=== PATIENT | male | born 1955 | race African-American/Black ===

== ENCOUNTER 2016-09-19 04:15 | Emergency (ER) | payer BC ==
[~2016-09-19] VITALS: Ht 177.8 cm; Wt 133.8 kg
[2016-09-19] VITALS (8 sets, daily range): BP systolic 61–139; BP diastolic 35–68
--- NOTE | 2016-09-19 04:37 | Emergency Room Report ---
History of Present Illness General Chief Complaint: Allergic Reaction Source: Patient Present Illness HPI This is a 60-year-old male with history of diabetes. He also said he has allergic reaction to Kale. Patient presents with chief complaint of allergic reaction. He said he ate pizza and salad around 8:00 p.m. Around 10:00 patient presents with itching and redness. He took couple Benadryl is. Symptoms did not improve. He took a total of 6 Benadryl is before he called 911 around an hour ago. Patient has nausea vomiting. Also diaphoretic. He said this is typical for him. [place] his tongue swollen. Denies any other complaint. No abdominal pain. No chest pain Allergies: Uncoded Allergies: KALE (Allergy, Unknown, 09/19/16) Patient History Past Medical History: see triage record, old chart reviewed, DM, HTN Past Surgical History: other Pertinent Family History: none Social History: Denies: smoking Immunizations: other Reviewed Nursing Documentation: PMH: Agreed, PSxH: Agreed Nursing Documentation-PMH Past Medical History: No History, Except For Hx Diabetes: Yes Review of Systems Eye: Denies: blurred vision, eye pain ENT: Denies: ear pain, nose congestion, throat swelling Respiratory: Reports: shortness of breath, Denies: cough Cardiovascular: Denies: chest pain, palpitations Gastrointestinal: Denies: abdominal pain, diarrhea, nausea, vomiting Musculoskeletal: Denies: back pain, joint pain Skin: Denies: rash Neurological: Denies: headache, numbness Endocrine: Denies: increased thirst, increased urine Hematologic/Lymphatic: Denies: easy bruising All Other Systems: negative except mentioned in HPI Physical Exam Vital Signs Date Time Temp Pulse Resp B/P Pulse Ox O2 Delivery O2 Flow Rate FiO2 09/19/16 04:15 94.8 109 23 102/50 91 Room Air vitals with hypoxia Sp02 EP Interpretation: reviewed, normal General Appearance: well appearing, alert, mild distress, obese Head: normocephalic, atraumatic Eyes: bilateral eye EOMI, bilateral eye PERRL ENT: hearing grossly normal, normal pharynx Neck: full range of motion, supple, no meningismus Respiratory: chest non-tender, lungs clear, normal breath sounds Cardiovascular #1: regular rate, rhythm, no murmur Gastrointestinal: normal bowel sounds, non tender, no mass, no organomegaly, no bruit, non-distended Musculoskeletal: back normal, gait/station normal, normal range of motion Neurologic: alert, oriented x3 Psychiatric: mood/affect normal Skin: diaphoresis Medical Decision Making Diagnostic Impression: Primary Impression: 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 He was very diaphoretic and hypotensive. He took 6 Benadryl so prior to arrival. I him steroid here. He did complaining of shortness of breath and tongue edema. His symptom improved greatly. He said that he felt better. No longer itching. No longer short of breath. No longer has tongue edema. However, blood pressure remained hypotensive. This could be secondary to the Benadryl or anaphylaxis. He is a very large man and blood pressure cuff was reading well. He said he had this problem before. I did a manual blood pressure and it was about 20 points higher. It was still in the 80s. After epinephrine, slowly improving. Observe him for a couple hours. I will sign this patient out to Dr. Bean. On discharge, he will be an EpiPen. Lab Results Impression labs unremarkable EKG Diagnostic Results Rate: normal, tachycardiac Rhythm: NSR ST Segments: no acute changes Rhythm Strip Diag. Results EP Interpretation: yes Rate: 102 Rhythm: NSR, no PVC's, no ectopy Last Vital Signs Date Time Temp Pulse Resp B/P Pulse Ox O2 Delivery O2 Flow Rate FiO2 09/19/16 04:15 94.8 109 23 102/50 91 Room Air Status: improved Disposition: HOME, SELF-CARE Condition: Stable Scripts Prednisone* (PREDNISONE*) 20 Mg Tablet 60 MG ORAL DAILY, #9 TAB Prov: LIZ GALAN M.D. 09/19/16 Epinephrine (Epipen 2-Grant) 0.3 Mg/0.3 Ml Auto.injct 0.3 MG IM ONCE, #1 EA Prov: LIZ GALAN M.D. 09/19/16 Patient Instructions: Food Allergy Additional Instructions: You would need to see an service writer advisor for testing a food allergy. Followup with your DrJose Angel in 2-3 days. Return if symptom worsen. LIZ GALAN M.D. Sep 19, 2016 04:37
[2016-09-19] MEDS ORDERED: Solu-MEDROL 125mg Inj IVP ONE (04:45)
[2016-09-19] MEDS ORDERED: Albuterol ud Inhalation HHN ONE (04:45)
[2016-09-19 05:00] LABS: BASOPHILS % (AUTO) 0.8 % (0.0-2.0); EOSINOPHILS % (AUTO) 1.1 % (0.0-3.0); MEAN CORPUSCULAR HEMOGLOBIN 30.1 PG (27.0-31.0); MEAN CORPUSCULAR HGB CONC 33.6 G/DL (32.0-36.0); MEAN CORPUSCULAR VOLUME 90 FL (80-99); MEAN PLATELET VOLUME 5.3 FL (6.5-10.1); MONOCYTES % (AUTO) 4.5 % (1.0-10.0); NEUTROPHILS % (AUTO) 49.6 % (45.0-75.0); PLATELET COUNT 382 K/UL (150-450); RED BLOOD COUNT 5.91 M/UL (4.70-6.10); RED CELL DISTRIBUTION WIDTH 12.6 % (11.6-14.8); WHITE BLOOD COUNT 11.7 K/UL (4.8-10.8)
[2016-09-19 05:18] LABS: ALANINE AMINOTRANSFERASE 43 U/L (3-41); ALBUMIN/GLOBULIN RATIO 1.4 (1.0-2.7); ANION GAP 25 (5-15); ASPARTATE AMINO TRANSFERASE 27 U/L (5-40); CALCIUM 8.8 mg/dL (8.6-10.2); CARBON DIOXIDE 18 mEQ/L (20-30); CHLORIDE 97 mEQ/L (98-107); CREATININE 1.4 mg/dL (0.7-1.2); GLOMERULAR FILTRATION RATE > 60 mL/min (>60); HEMOLYSIS 13; POTASSIUM 3.9 mEQ/L (3.4-4.9); SODIUM 140 mEQ/L (135-145); TOTAL PROTEIN 6.4 g/dL (6.6-8.7)
[2016-09-19 05:20] LABS: TROPONIN I < 0.30 ng/mL (<=0.30)
[2016-09-19 05:28] LABS: CKMB 3.4 ng/mL (< 6.7)
[2016-09-19] MEDS ORDERED: EPINEPHrine 1mg/1ml Amp IM ONE (06:00)
[2016-09-19] MEDS ORDERED: PREDNISONE20 MG ORAL (06:36)
[2016-09-19] MEDS ORDERED: EPIPEN 2-P0.3 MG/0.3 IM (06:36)
[2016-09-19 09:04] LABS: APPEARANCE,URINE CLEAR; KETONES,URINE 3+ (NEGATIVE); LEUKOCYTE ESTERASE ,URINE NEGATIVE (NEGATIVE); NITRITE,URINE NEGATIVE (NEGATIVE); PH,URINE 5 (4.5-8.0); PROTEIN,URINE 1+ (NEGATIVE); UROBILINOGEN,URINE NORMAL MG/DL (0.0-1.0)
[2016-09-19 09:31] LABS: BACTERIA,URINE FEW /HPF; RBC,URINE 0-2 /HPF (0 - 0); SQUAMOUS EPITHELIAL CELL,UR FEW /LPF (NONE/OCC); WBC,URINE 0-2 /HPF (0 - 0)
[2016-09-19 09:32] LABS: GRANULAR CASTS,URINE 0-2 /LPF
--- NOTE | 2016-09-20 08:39 | Diagnostic Imaging Report ---
Indication: Dyspnea Comparison: None A single view chest radiograph was obtained. Findings: Cardiomediastinal appearance is within normal limits for age. Pulmonary vascularity is appropriate. The diaphragmatic contour is smooth and costophrenic angles are sharp. No pleural effusions are identified. The bones are unremarkable. Impression: No acute findings
--- NOTE | 2016-09-22 23:39 | Cardiology Report ---
APPROVED REPORT EKG Measurement Heart [id number] Sinus tachycardia Otherwise normal ECG
== END 2016-09-19 10:09 | disposition home or self-care (01) ==
LOC: EDBD 04:15 → EMR 04:35
DX: T78.00XA Anaphylactic reaction due to unspecified food, initial encounter (principal); X58.XXXA Exposure to other specified factors, initial encounter; E66.01 Morbid (severe) obesity due to excess calories; Z68.41 Body mass index [BMI] 40.0-44.9, adult; E11.9 Type 2 diabetes mellitus without complications; Z91.018 Allergy to other foods
CPT/HCPCS: 36415; 71010; 80053; 80300; 81003; 82550; 82553; 82962; 83880; 84484; 85025; 93005; 94640; 94664; 96372; 96374; 96375; 99284; J0171; J2405; J2930